=== PATIENT | male | born 1955 | race Caucasian/White ===

== ENCOUNTER → 2018-12-22 | Outpatient (CLI) | payer OTHER ==
[~2018-12-22] MED LIST: ADULT LOW DOSE81 MG PO; AMITRIPTYLINE H10 M1 PO; ANTARA130 MG PO; FISH OIL 1,0001 EAC5 PO; FUROSEMIDE 20 M20 M1 PO; GLUCOPHAGE500 MG PO; LISINOPRIL5 MG PO; LOPRESSOR PO; MOBIC15 MG PO; MOBIC7.5 MG PO; NORCO 5-325 TA1 EACH PO; TRAMADOL 50 MG50 MG PO; ULTRAM 50MG TAB50 MG PO; ZOCOR 20 MG TAB20 M1 PO; clonidine PO
--- NOTE | 2018-12-23 23:50 | SLEEP ---
[address] [address] SLEEP STUDY REPORT Name: VENICE CHAIREZ Room: [facility]#: [id number] Admission: 12/22/18 Attend Phys: Clayton Mendes Discharge: Date of : 57 Report #: [id number] THIS REPORT FOR: //name// CC: Dr. Clayton Mendes This study has been reviewed in its entirety by a board certified sleep specialist DATE OF SERVICE: 12/22/2018 SLEEP STUDY ATTENDING PHYSICIAN: Dr. Clayton Mendes The patient is 63 years old who weighs 309 pounds with a BMI of 40.8. The patient is current CPAP user. A titration study was requested by primary care physician. Results of diagnostic study was not available at the time of dictation. During the night study, the patient spent 453 minutes in bed and slept for 118 minutes with a poor sleep efficiency of 26%. Sleep latency was 15 minutes with a REM latency of 105 minutes. Overall, sleep architecture showed normal stage 1 sleep, reduced stage 2 sleep, increased slow wave sleep and increased REM sleep. During the night study, the patient's EKG monitoring revealed an average heart rate of 65 beats per minute. No sustained arrhythmias observed. PLMS were seen at an index of 44 per hour, but only 4.5 per hour caused EEG arousals. The patient was started on CPAP at a pressure of 5 cm water and titrated up to 9 cm water. At the final pressure, the patient slept for 16.4 minutes. The patient had no REM sleep, but minimal supine sleep seen. The patient's AHI was reduced to 0 per hour and oxygen saturation remained above 91%. IMPRESSION: 1. Sleep apnea diagnosed previously. 2. Moderate periodic limb movements of sleep. 3. 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 RECOMMENDATIONS: 1. CPAP at 9 cm water completely eliminated the patient's sleep apnea and should be used on a nightly basis. 2. Follow up in 4-6 weeks to assess compliance with CPAP and to [place] [address] SLEEP STUDY REPORT Name: VENICE CHAIREZ Room: [facility]#: [id number] Admission: 12/22/18 Attend Phys: Clayton Mendes Discharge: Date of : 57 Report #: [id number] 3. Weight loss is strongly advised. 4. Avoid [employer] depressants. 5. Cautioned regarding driving or operating heavy machinery until symptoms of sleep apnea resolve with the use of CPAP. 6. The patient had sleep maintenance insomnia. If this is a chronic condition, then it should be further evaluated and treated according to the etiology. 7. The patient should also be further evaluated for symptoms of restless legs during the day. <ELECTRONICALLY SIGNED> By: Thai Willoughby MD 12/23/18 [id number] Willoughby MD /guerline
== END ==
LOC: M.SLEEPLAB 19:45
DX: G47.30 Sleep apnea, unspecified (principal)